=== PATIENT | female | born 1950 | race African-American/Black ===

== ENCOUNTER → 2021-01-04 | Outpatient (CLI) | payer MEDICARE, MEDICAID ==
[~2021-01-04] MED LIST: AMLO10TA80 PO; ASPI-1497 PO; ATOR-2 PO; CHOL100046 PO; CYCL1DRO6 BOTHEYE; DEXL60CA3 PO; LATA7.5D BOTHEYE; MELO-106 PO
== END | disposition home or self-care (01) ==
LOC: LAB 08:56
PROVIDERS: ATTEND Surgery
DX: Z01.812 Encounter for preprocedural laboratory examination (principal); Z20.822 Contact with and (suspected) exposure to COVID-19
CPT/HCPCS: 87426

== ENCOUNTER → 2021-01-06 | Day surgery (SDC) | payer MEDICARE, MEDICAID ==
[~2021-01-06] VITALS: Ht 172.7 cm; Wt 100.7 kg
[~2021-01-06] MED LIST changes: +ACETAMINOPHEN 500MG TABLET ONE; +BUPIVACAINE HCL 0.5% (5MG/ML) 50ML ONE; +LACTATED RINGERS 1,000 ML IV SCH; +SKIN ADHESIVE 0.7 GM EA TOP ONE
[2021-01-06] MEDS: HYDROMORPHONE HCL/PF 2MG/ML CPJ IV PRN ×2 (09:55→10:04)
[2021-01-06 10:04] VITALS: BP 144/91
== END | disposition home or self-care (01) ==
LOC: OR 05:32
PROVIDERS: ATTEND Surgery
DX: R22.1 Localized swelling, mass and lump, neck (principal); I10 Essential (primary) hypertension; I25.10 Atherosclerotic heart disease of native coronary artery without angina pectoris; E78.00 Pure hypercholesterolemia, unspecified; M19.90 Unspecified osteoarthritis, unspecified site; K21.9 Gastro-esophageal reflux disease without esophagitis; E66.9 Obesity, unspecified; Z87.891 Personal history of nicotine dependence; Z79.899 Other long term (current) drug therapy; Z98.890 Other specified postprocedural states; Z79.82 Long term (current) use of aspirin; Z88.5 Allergy status to narcotic agent; Z88.8 Allergy status to other drugs, medicaments and biological substances
CPT/HCPCS: 21552; 88305; J1170; J2370; J2405; J2704; J3010; J3490